=== PATIENT | male | born 2000 | race African-American/Black ===

== ENCOUNTER 2019-03-04 20:52 | Emergency (ER) | payer SELFPAY ==
--- NOTE | 2019-03-04 21:03 | UC ---
Skin Complaint HPI - HPI Summary HPI Summary: 18 yo male presents with ?bug bite to left leg. He tells me that about 4 days ago he woke up and noticed a small red bump to his upper posterior left calf that he thought was a mosquito bite as it was about the size of a dime. Since that time the area has spread to about 6.0cm and has become red with a purple- like color to the middle. Mildly tender and warm. Has been applying antibiotic cream with no relief. Denies fever, chills, SOB, n/v. - History of Current Complaint Time Seen by Provider: 03/04/19 21:02 Stated Complaint: LEG WOUND Hx Obtained From: Patient Onset/Duration: Gradual Onset Onset Severity: Mild Current Severity: Mild Pain Intensity: 3 Pain Scale Used: 0-10 Numeric - Allergy/Home Medications Allergies/Adverse Reactions: Allergies Allergy/AdvReac Type Severity Reaction Status Date / Time No Known Allergies Allergy Verified 03/04/19 21:25 Home Medications: Home Medications Fexofenadine (NF) [Jazmyne 180 (NF)] 180 mg PO DAILY 03/04/19 [History Confirmed 03/04/19] Review of Systems All Other Systems Reviewed And Are Negative: Yes Constitutional: Positive: Negative Skin: Positive: Rash Respiratory: Positive: Negative Cardiovascular: Positive: Negative Gastrointestinal: Positive: Negative Neurovascular: Positive: Negative Neurological: Positive: Negative Psychological: Positive: Negative Physical Exam - Summary Physical Exam Summary: GENERAL: NAD. WDWN. No pain distress. SKIN: LEFT posterior proximal calf with 6.5cm oval shaped area of erythema with central 3.0cm oval shaped purple in color area. Mildly TTP. Mildly warm. No streaking, fluctuance, induration, or abscess. No ulceration, necrosis, or open wound. NECK: Supple. Nontender. No lymphadenopathy. CHEST: No accessory muscle use. Breathing comfortably and in no distress. CV: Pulses intact. Cap refill <2seconds MSK: FROM without pain at left knee. NEURO: Alert. PSYCH: Age appropriate behavior. Triage Information Reviewed: Yes Vital Signs: Vital Signs: Temp Pulse Resp BP Pulse Ox 99.4 F 85 18 123/57 100 03/04/19 21:28 03/04/19 21:28 03/04/19 21:28 03/04/19 21:28 03/04/19 21:28 Vital Signs Reviewed: Yes Course/Dx - Course Course Of Treatment: Suspect spider bite. The central area of purple color concerns for possible recluse bite, but there is no blistering, open wound, or obvious necrotic tissue at this time. Will have him apply ice to the area and elevate his leg throughout the day as well as start him on Clindamycin for cellulitis. Strongly encouraged to f/u with PCP or return to the clinic in 2 days for a recheck - Diagnoses Provider Diagnosis: Cellulitis of left leg Discharge - Sign-Out/Discharge Documenting (check all that apply): Patient Departure All imaging exams completed and their final reports reviewed: No Studies - Discharge Plan Condition: Stable Disposition: HOME Prescriptions: Clindamycin HCl 300 mg PO TID #21 capsule Patient Education Materials: Insect Bite or Sting (ED), Brown Recluse Spider Bite (ED) Referrals: No Primary Care Phys,NOPCP [Primary Care Provider] - Additional Instructions: If you develop a fever, shortness of breath, chest pain, new or worsening symptoms - please call your PCP or go to the ED immediately. 1) Elevate your leg and apply ice intermittently throughout the day 2) Take your antibiotic as directed 3) I recommend that you return to the Urgent Care in 2 days for a wound check 4) If you develop a fever, worsening pain, the wound opens, or if the redness spreads - please go to the ER immediately - Billing Disposition and Condition Condition: STABLE Disposition: Home
[2019-03-04] MEDS ORDERED: Clindamycin CAP* 150 MG PO ONE (21:21)
[2019-03-04 21:31] VITALS: BP 123/57
== END 2019-03-04 21:40 | disposition home or self-care (01) ==
LOC: UCEAST 20:52
DX: L03.116 Cellulitis of left lower limb (principal)
CPT/HCPCS: 96372; 99202; A9270-GY; G0463